=== PATIENT | male | born 1950 | race African-American/Black ===

== ENCOUNTER 2018-10-13 05:18 | Inpatient (IN) ==
[2018-10-13] MEDS ORDERED: HYDROmorphone 2 MG/1 ML VIAL IV PRN (06:11)
[2018-10-13] MEDS ORDERED: ONDANSETRON 4 MG/2 ML VIAL IV STA (06:11)
[2018-10-13 06:23] LABS: Basophils % 0.6 % (0.0-0.8); Eosinophils # 0.1 10*3/uL (0.0-0.87); Eosinophils % 1.4 % (0.00-10.9); Hemoglobin 13.6 GM/DL (14.0-18.0); Immature Granulocytes % 0.4 %; Immature Granulocytes Absolute 0.03 #; Lymphocytes # 1.1 10*3/uL (1.4-4.0); Lymphocytes % 16.2 % (21.2-54.2); Mean Corpuscular HGB Conc 32.4 GM/DL (32-36); Mean Corpuscular Hemoglobin 27 PG (27-34); Mean Corpuscular Volume 84.2 FL (87-102); Mean Platelet Volume 11.8 FL (9.6-12.0); Monocytes # 0.4 10*3/uL (0.11-0.8); Monocytes % 5.6 % (1.7-12.7); Neutrophils # 5.2 10*3/uL (1.4-7.4); Neutrophils % 75.8 % (38.7-73.9); Platelet Count 248 T/CUMM (130-400); Red Blood Count 4.99 MC/CUMM (3.8-5.5); Red Cell Distribution Width 14.6 % (9.3-17.3); White Blood Count 6.9 T/CUMM (4-12)
[2018-10-13 06:57] LABS: Lactic Acid 1.8 MMOL/L (0.4-2.0)
[2018-10-13 07:12] LABS: Alanine Aminotransferase 22 U/L (16-61); Albumin 3.4 G/DL (3.4-5.0); Alkaline Phosphatase 80 U/L (45-117); Aspartate Amino Transferase 15 U/L (0-37); Bilirubin,Total < 0.39 MG/DL (0.2-1.0); Blood Urea Nitrogen 17 MG/DL (7-18); Calcium 8.5 MG/DL (8.5-10.1); Glucose 100 MG/DL (74-106); Osmolality,Calculated 274.8 MOS/KG (273-304); Potassium 4.2 MMOL/L (3.5-5.1); Sodium 137 MMOL/L (136-145); Total Protein 7.9 G/DL (6.4-8.3)
[2018-10-13 08:41] LABS: Amorphous Crystals,Urine Occasional /HPF (Few); Apearance,Urine Slightly Hazy (Clear); Bacteria,Urine Occasional /HPF (Few); Bilirubin,Urine Negative (Negative); Blood, Urine Small mg/dL (Negative); Glucose,Urine (UA) Negative (Negative); Hyaline Casts,Urine 15 /LPF (0-3); Ketones,Urine Negative (Negative); Mucus,Urine Occasional /LPF (Occasional); Nitrite,Urine Negative (Negative); Protein,Urine Negative; RBC,Urine 4 /HPF (0-4); Squamous Epithelial Cell,Urine Occasional /HPF (0-10); Urine Color Yellow (Yellow); Urine Specific Gravity 1.014 (1.001-1.035); Urine Urobilinogen < 2.0 EU/DL (0.2-1.0); WBC,Urine 18 /HPF (0-6)
[2018-10-13] MEDS ORDERED: ZALEPLON 5 MG CAPSULE PO PRN (09:31)
[2018-10-13] MEDS ORDERED: BISACODYL 5 MG TABLET PO PRN (09:31)
[2018-10-13] MEDS ORDERED: ONDANSETRON 4 MG/2 ML VIAL IV PRN (09:31)
[2018-10-13] MEDS ORDERED: ALBUTEROL 2.5 MG/3 ML NEB RESP TX PRN (09:34)
[2018-10-13] MEDS ORDERED: SODIUM CHLORIDE 0.9% 1,000 ML IV STA (10:06)
[2018-10-13] MEDS: amLODIPine 5 MG TABLET PO SCH (13:10)
[2018-10-13] MEDS: METOPROLOL TARTRATE 50 MG TABLET PO SCH ×2 (13:10→21:17)
[2018-10-13] MEDS: OXYBUTYNIN XL 10 MG TABLET PO SCH (13:11)
[2018-10-13 17:09] LABS: Barbiturates Screen,Urine Negative (Negative); Benzodiazepines Screen,Urine Negative (Negative); Cannabinoid Screen,Urine Negative (Negative); Opiate Screen,Urine Positive (Negative); Phencyclidine Screen,Urine Negative (Negative)
[2018-10-13] MEDS: ENOXAPARIN 30 MG/0.3 ML SYRINGE SUBCUT SCH (21:17)
[2018-10-13] MEDS: MONTELUKAST 10 MG TABLET PO SCH (21:17)
[2018-10-14 05:17] LABS: Calcium 8.9 MG/DL (8.5-10.1); Osmolality,Calculated 280.5 MOS/KG (273-304); Potassium 4.7 MMOL/L (3.5-5.1)
[2018-10-14] MEDS: OXYBUTYNIN XL 10 MG TABLET PO SCH (09:33)
[2018-10-14] MEDS: amLODIPine 5 MG TABLET PO SCH (09:34)
[2018-10-14] MEDS: METOPROLOL TARTRATE 50 MG TABLET PO SCH ×2 (09:34→21:15)
[2018-10-14] MEDS: MONTELUKAST 10 MG TABLET PO SCH (21:16)
[2018-10-14] MEDS: ENOXAPARIN 30 MG/0.3 ML SYRINGE SUBCUT SCH (21:16)
[2018-10-15 05:36] LABS: Calcium 8.6 MG/DL (8.5-10.1); Osmolality,Calculated 276.7 MOS/KG (273-304); Potassium 4.4 MMOL/L (3.5-5.1)
[2018-10-15] MEDS: amLODIPine 5 MG TABLET PO SCH (08:43)
[2018-10-15] MEDS: SODIUM CHLORIDE 0.9% 1,000 ML IV SCH (08:44)
[2018-10-15] MEDS: OXYBUTYNIN XL 10 MG TABLET PO SCH (08:44)
[2018-10-15] MEDS: METOPROLOL TARTRATE 50 MG TABLET PO SCH ×2 (10:05→21:50)
[2018-10-15] MEDS ORDERED: hydrALAZINE 20 MG/1 ML VIAL IV PRN (11:57)
[2018-10-15] MEDS: hydrALAZINE 25 MG TABLET PO SCH ×2 (14:03→21:51)
[2018-10-15] MEDS ORDERED: cefTRIAXone 1,000 MG in SYRINGE 1 EACH IV SCH (16:00)
[2018-10-15] MEDS: MONTELUKAST 10 MG TABLET PO SCH (21:50)
[2018-10-15] MEDS: ENOXAPARIN 30 MG/0.3 ML SYRINGE SUBCUT SCH (21:51)
[2018-10-16] MEDS: SODIUM CHLORIDE 0.9% 1,000 ML IV SCH (06:35)
[2018-10-16] MEDS: amLODIPine 5 MG TABLET PO SCH (08:45)
[2018-10-16] MEDS: OXYBUTYNIN XL 10 MG TABLET PO SCH (08:45)
[2018-10-16] MEDS: hydrALAZINE 25 MG TABLET PO SCH (08:45)
[2018-10-16] MEDS: METOPROLOL TARTRATE 50 MG TABLET PO SCH (08:45)
[2018-10-16 12:27] VITALS: BP 157/78
== END 2018-10-16 13:18 | disposition home or self-care (01) | DRG 439 ==
LOC: EDUNIT# → EDBD → N.ED 05:18 → N.EDINP 09:31 → SUATTDRO 09:31 → N.4E 10:41
PROVIDERS: ADMIT Internal Medicine Cardiovascular Disease; ATTEND Internal Medicine

== ENCOUNTER 2020-10-11 11:57 | Inpatient (IN) ==
[2020-10-11] MEDS ORDERED: methylPREDNISolone SOD SUC 125 MG/2 ML VIAL IV STA (12:24)
[2020-10-11] MEDS ORDERED: ALBUTEROL NEB SOLN 5 MG/ML 20 ML/BOTTLE CONT NEB SCH (12:30)
[2020-10-11 12:31] LABS: Basophils % 0.2 % (0.0-0.8); Eosinophils # 0.1 10*3/uL (0.0-0.87); Hemoglobin 13.6 GM/DL (14.0-18.0); Immature Granulocytes % 0.3 %; Immature Granulocytes Absolute 0.03 #; Lymphocytes # 0.7 10*3/uL (1.4-4.0); Lymphocytes % 7.1 % (21.2-54.2); Mean Corpuscular HGB Conc 33.2 GM/DL (32-36); Mean Corpuscular Volume 80.1 FL (87-102); Mean Platelet Volume 11.9 FL (9.6-12.0); Monocytes % 4.6 % (1.7-12.7); Neutrophils % 86.8 % (38.7-73.9); Platelet Count 188 T/CUMM (130-400); Red Blood Count 5.12 MC/CUMM (3.8-5.5); Red Cell Distribution Width 14.7 % (9.3-17.3); White Blood Count 9.8 T/CUMM (4-12)
[2020-10-11 12:59] LABS: Albumin 3.1 G/DL (3.4-5.0); Bilirubin,Total 0.8 MG/DL (0.2-1.0); Calcium 9.3 MG/DL (8.5-10.1); Potassium 4.1 MMOL/L (3.5-5.1); Total Protein 8.2 G/DL (6.4-8.3)
[2020-10-11 13:06] LABS: ABG Base Excess -0.1 MMOL/L (-2.5-2.5); ABG HCO3 24.3 MMOL/L (20-26); ABG Oxygen Saturation 96.9 % (95-100); ABG PCO2 32.5 MM HG (35-48); ABG PH 7.458 (7.35-7.45); ABG PO2 85.5 MM HG (80-95); ABG TCO2 20.2 MMOL/L (23-27)
[2020-10-11] MEDS ORDERED: DEXAMETHASONE 4 MG/1 ML VIAL IV STA (13:07)
[2020-10-11] MEDS ORDERED: FUROSEMIDE 40 MG/4 ML VIAL IV STA (14:58)
[2020-10-11] MEDS ORDERED: cefTRIAXone 1,000 MG in SODIUM CHLORIDE 0.9% 100 ML IV STA (14:58)
[2020-10-11 16:09] LABS: Ferritin 991.4 ng/ml (26-388)
[2020-10-11] MEDS ORDERED: DEXTROSE 50% 25 GM/50 ML VIAL IV PRN ×2 (16:21→17:41)
[2020-10-11] MEDS ORDERED: GLUCAGON 1 MG VIAL IM PRN ×2 (16:21→17:41)
[2020-10-11] MEDS ORDERED: hydrALAZINE 20 MG/1 ML VIAL IV STA (16:25)
[2020-10-11] MEDS ORDERED: hydrALAZINE 20 MG/1 ML VIAL ONE (16:26)
[2020-10-11] MEDS: hydrALAZINE 25 MG TABLET PO SCH (21:25)
[2020-10-11] MEDS: INSULIN LISPRO 100 UNIT/ML SUBCUT SCH (21:38)
[2020-10-12] MEDS: ATORVASTATIN 10 MG TABLET PO SCH ×2 (00:37→21:29)
[2020-10-12] MEDS: hydrALAZINE 20 MG/1 ML VIAL IV PRN ×3 (00:39→05:44)
[2020-10-12 03:37] LABS: Bacteria,Urine Occasional /HPF (Few); Bilirubin,Urine Negative (Negative); Blood, Urine Negative (Negative); Glucose,Urine (UA) Negative (Negative); Hyaline Casts,Urine 12 /LPF (0-3); Ketones,Urine Negative (Negative); Mucus,Urine Occasional /LPF (Occasional); Nitrite,Urine Negative (Negative); Protein,Urine 30 MG/DL; RBC,Urine 1 /HPF (0-4); Urine Appearance Slightly Hazy (Clear); Urine Color Yellow (Yellow); Urine Specific Gravity 1.011 (1.001-1.035); Urine Urobilinogen < 2.0 EU/DL (0.2-1.0); WBC,Urine <1 /HPF (0-6)
[2020-10-12 05:47] LABS: Ferritin 1835.6 ng/ml (26-388)
[2020-10-12 06:05] LABS: Basophils % 0.1 % (0.0-0.8); Hematocrit 38.9 VOL% (42.0-52.0); Immature Granulocytes % 0.4 %; Immature Granulocytes Absolute 0.04 #; Lymphocytes # 0.4 10*3/uL (1.4-4.0); Lymphocytes % 4.4 % (21.2-54.2); Mean Corpuscular HGB Conc 33.7 GM/DL (32-36); Mean Corpuscular Volume 79.4 FL (87-102); Mean Platelet Volume 11.3 FL (9.6-12.0); Monocytes % 2.8 % (1.7-12.7); Neutrophils % 92.3 % (38.7-73.9); Platelet Count 169 T/CUMM (130-400); Red Cell Distribution Width 14.6 % (9.3-17.3); White Blood Count 9.2 T/CUMM (4-12)
[2020-10-12 06:06] LABS: Albumin 2.9 G/DL (3.4-5.0); Bilirubin,Total 0.7 MG/DL (0.2-1.0); Calcium 9.2 MG/DL (8.5-10.1); Osmolality,Calculated 297.7 MOS/KG (273-304); Potassium 4.4 MMOL/L (3.5-5.1); Risk Ratio 2.23; Thyroid Stimulating Hormone 0.576 uIU/ml (0.358-3.74); Total Protein 7.3 G/DL (6.4-8.3); VLDL CHOLESTEROL 12.4 MG/DL
[2020-10-12 06:07] LABS: Hemoglobin 13.1 GM/DL (14.0-18.0)
[2020-10-12 06:31] LABS: Band Neutrophils 1 % (0-10); Hypochromasia 1+; Lymphocytes 5 % (20-55); Microcytosis 1+; Platelet Estimate Adequate; Segmented Neutrophils 94 % (50-85); Total Cells Counted 100
[2020-10-12] MEDS: INSULIN LISPRO 100 UNIT/ML SUBCUT SCH ×4 (07:43→21:34)
[2020-10-12] MEDS: hydrALAZINE 25 MG TABLET PO SCH ×2 (09:16→21:29)
[2020-10-12] MEDS: FUROSEMIDE 40 MG/4 ML VIAL IV SCH (09:17)
[2020-10-12] MEDS: DEXAMETHASONE 4 MG/1 ML VIAL IV SCH (09:17)
[2020-10-12] MEDS ORDERED: HEPARIN 5,000 UNIT/1 ML VIAL SUBCUT SCH (12:00)
[2020-10-12] MEDS: HEPARIN 5,000 UNIT/1 ML VIAL SUBCUT SCH ×2 (12:52→21:29)
[2020-10-12] MEDS: ASCORBIC ACID 500 MG TABLET PO SCH ×2 (12:53→21:29)
[2020-10-12] MEDS: ZINC GLUCONATE 50 MG TABLET PO SCH (12:53)
[2020-10-12] MEDS: ALBUTEROL INHALER 18 GM INH SCH ×2 (12:53→18:03)
[2020-10-12] MEDS: METOPROLOL TARTRATE 50 MG TABLET PO SCH (21:29)
[2020-10-12] MEDS: cefTRIAXone 1,000 MG in SYRINGE 1 EACH IV SCH (21:32)
[2020-10-12] MEDS: AZITHROMYCIN INJ 500 MG in SODIUM CHLORIDE 0.9% 250 ML IV SCH (21:50)
[2020-10-13] MEDS: ALBUTEROL INHALER 18 GM INH SCH ×4 (00:07→22:02)
[2020-10-13] MEDS: HEPARIN 5,000 UNIT/1 ML VIAL SUBCUT SCH ×3 (04:38→22:31)
[2020-10-13 05:49] LABS: Basophils % 0.1 % (0.0-0.8); Hematocrit 37.8 VOL% (42.0-52.0); Hemoglobin 12.7 GM/DL (14.0-18.0); Immature Granulocytes % 0.8 %; Immature Granulocytes Absolute 0.08 #; Lymphocytes # 0.5 10*3/uL (1.4-4.0); Lymphocytes % 4.8 % (21.2-54.2); Mean Corpuscular HGB Conc 33.6 GM/DL (32-36); Mean Corpuscular Volume 80.6 FL (87-102); Mean Platelet Volume 11.7 FL (9.6-12.0); Monocytes % 3.2 % (1.7-12.7); Neutrophils % 91.1 % (38.7-73.9); Platelet Count 203 T/CUMM (130-400); Red Blood Count 4.69 MC/CUMM (3.8-5.5); Red Cell Distribution Width 14.9 % (9.3-17.3); White Blood Count 10.1 T/CUMM (4-12)
[2020-10-13 06:16] LABS: Hypochromasia 1+; Lymphocytes 4 % (20-55); Microcytosis 1+; Platelet Estimate Adequate; Segmented Neutrophils 92 % (50-85); Total Cells Counted 100
[2020-10-13 06:17] LABS: Albumin 2.7 G/DL (3.4-5.0); Bilirubin,Total 0.4 MG/DL (0.2-1.0); Osmolality,Calculated 297.7 MOS/KG (273-304); Potassium 4.2 MMOL/L (3.5-5.1); Total Protein 7.2 G/DL (6.4-8.3)
[2020-10-13 06:32] LABS: Ferritin 2346.3 ng/ml (26-388)
[2020-10-13] MEDS: INSULIN LISPRO 100 UNIT/ML SUBCUT SCH ×4 (07:58→22:02)
[2020-10-13] MEDS: DEXAMETHASONE 4 MG/1 ML VIAL IV SCH (08:48)
[2020-10-13] MEDS: MULTIVITAMIN (CENTRUM) TABLET PO SCH (08:49)
[2020-10-13] MEDS: FUROSEMIDE 40 MG/4 ML VIAL IV SCH (08:49)
[2020-10-13] MEDS: ZINC GLUCONATE 50 MG TABLET PO SCH (08:49)
[2020-10-13] MEDS: hydrALAZINE 25 MG TABLET PO SCH ×3 (08:49→22:29)
[2020-10-13] MEDS: THIAMINE 100 MG TABLET PO SCH (08:49)
[2020-10-13] MEDS: FOLIC ACID 1 MG TABLET PO SCH (08:49)
[2020-10-13] MEDS: ASCORBIC ACID 500 MG TABLET PO SCH ×2 (08:49→22:29)
[2020-10-13] MEDS: METOPROLOL TARTRATE 50 MG TABLET PO SCH ×2 (08:50→22:29)
[2020-10-13] MEDS ORDERED: methylPREDNISolone SOD SUC 125 MG/2 ML VIAL IV ONE (11:00)
[2020-10-13] MEDS: CETIRIZINE 10 MG TABLET PO SCH (12:06)
[2020-10-13] MEDS: ATORVASTATIN 10 MG TABLET PO SCH (22:29)
[2020-10-13] MEDS: AZITHROMYCIN INJ 500 MG in SODIUM CHLORIDE 0.9% 250 ML IV SCH (22:30)
[2020-10-13] MEDS: cefTRIAXone 1,000 MG in SYRINGE 1 EACH IV SCH (22:30)
[2020-10-14] MEDS: ALBUTEROL INHALER 18 GM INH SCH ×2 (00:37→09:03)
[2020-10-14] MEDS: HEPARIN 5,000 UNIT/1 ML VIAL SUBCUT SCH (05:06)
[2020-10-14 05:10] LABS: Hematocrit 35.8 VOL% (42.0-52.0); Hemoglobin 11.9 GM/DL (14.0-18.0); Immature Granulocytes % 0.4 %; Immature Granulocytes Absolute 0.04 #; Lymphocytes # 0.5 10*3/uL (1.4-4.0); Lymphocytes % 5.4 % (21.2-54.2); Mean Corpuscular HGB Conc 33.2 GM/DL (32-36); Mean Corpuscular Volume 79.7 FL (87-102); Mean Platelet Volume 11.3 FL (9.6-12.0); Monocytes % 3.1 % (1.7-12.7); Neutrophils % 91.1 % (38.7-73.9); Platelet Count 209 T/CUMM (130-400); Red Blood Count 4.49 MC/CUMM (3.8-5.5); Red Cell Distribution Width 14.6 % (9.3-17.3)
[2020-10-14 05:31] LABS: Ferritin 1765.2 ng/ml (26-388)
[2020-10-14 05:32] LABS: Albumin 2.6 G/DL (3.4-5.0); Bilirubin,Total 0.4 MG/DL (0.2-1.0); Calcium 8.9 MG/DL (8.5-10.1); Osmolality,Calculated 294.3 MOS/KG (273-304); Total Protein 7.1 G/DL (6.4-8.3)
[2020-10-14 05:39] LABS: Hypochromasia 1+; Lymphocytes 5 % (20-55); Microcytosis 1+; Ovalocytes Slight; Platelet Estimate Adequate; Segmented Neutrophils 91 % (50-85); Total Cells Counted 100
[2020-10-14] MEDS: INSULIN LISPRO 100 UNIT/ML SUBCUT SCH (07:37)
[2020-10-14] MEDS: METOPROLOL TARTRATE 50 MG TABLET PO SCH (09:06)
[2020-10-14] MEDS: THIAMINE 100 MG TABLET PO SCH (09:06)
[2020-10-14] MEDS: DEXAMETHASONE 4 MG/1 ML VIAL IV SCH (09:06)
[2020-10-14] MEDS: CETIRIZINE 10 MG TABLET PO SCH (09:06)
[2020-10-14] MEDS: FOLIC ACID 1 MG TABLET PO SCH (09:06)
[2020-10-14] MEDS: hydrALAZINE 25 MG TABLET PO SCH (09:06)
[2020-10-14] MEDS: FUROSEMIDE 40 MG/4 ML VIAL IV SCH (09:07)
[2020-10-14] MEDS: ZINC GLUCONATE 50 MG TABLET PO SCH (09:07)
[2020-10-14] MEDS: MULTIVITAMIN (CENTRUM) TABLET PO SCH (09:07)
[2020-10-14] MEDS: ASCORBIC ACID 500 MG TABLET PO SCH (09:08)
[2020-10-14 11:29] VITALS: BP 152/71
[2020-10-14 23:31] LABS: Specimen Source THROAT SWAB
== END 2020-10-14 11:33 | disposition home health service (06) | DRG 291 ==
LOC: N.ED 11:57 → N.EDINP 15:55 → SUATTDRO 15:55 → N.EDINP 23:00 → N.2E 23:54
PROVIDERS: ADMIT Internal Medicine; ATTEND Family Medicine

== ENCOUNTER 2020-12-24 09:54 | Observation (INO) ==
[2020-12-24 10:22] LABS: Basophils % 0.5 % (0.0-0.8); Eosinophils # 0.1 10*3/uL (0.0-0.87); Eosinophils % 1.9 % (0.00-10.9); Hematocrit 42.3 VOL% (42.0-52.0); Hemoglobin 13.7 GM/DL (14.0-18.0); Immature Granulocytes % 0.2 %; Immature Granulocytes Absolute 0.01 #; Lymphocytes # 1.1 10*3/uL (1.4-4.0); Lymphocytes % 18.4 % (21.2-54.2); Mean Corpuscular HGB Conc 32.4 GM/DL (32-36); Mean Corpuscular Volume 78.8 FL (87-102); Mean Platelet Volume 9.8 FL (9.6-12.0); Monocytes % 7.3 % (1.7-12.7); Neutrophils % 71.7 % (38.7-73.9); Platelet Count 224 T/CUMM (130-400); Red Blood Count 5.37 MC/CUMM (3.8-5.5); Red Cell Distribution Width 16.5 % (9.3-17.3); White Blood Count 5.9 T/CUMM (4-12)
[2020-12-24] MEDS ORDERED: methylPREDNISolone SOD SUC 125 MG/2 ML VIAL IV STA (10:23)
[2020-12-24] MEDS ORDERED: ALBUTEROL 2.5 MG/3 ML NEB RESP TX STA (10:25)
[2020-12-24] MEDS ORDERED: hydrALAZINE 20 MG/1 ML VIAL IV STA (10:32)
[2020-12-24] MEDS ORDERED: FUROSEMIDE 40 MG/4 ML VIAL IV STA (10:39)
[2020-12-24 10:52] LABS: INR 1.2
[2020-12-24 12:17] LABS: Albumin 3.2 G/DL (3.4-5.0); Bilirubin,Total 0.6 MG/DL (0.2-1.0); Calcium 9.3 MG/DL (8.5-10.1); Osmolality,Calculated 273.8 MOS/KG (273-304); Potassium 4.1 MMOL/L (3.5-5.1); Total Protein 8.2 G/DL (5.0-7.5)
[2020-12-24] MEDS ORDERED: ONDANSETRON 4 MG/2 ML VIAL IV PRN (13:20)
[2020-12-24] MEDS ORDERED: hydrALAZINE 20 MG/1 ML VIAL IV PRN (13:20)
[2020-12-24] MEDS ORDERED: CALCIUM CARBONATE CHEW 500 MG TABLET PO PRN (13:20)
[2020-12-24] MEDS ORDERED: LACTULOSE 20 GM/30 ML UDCUP PO PRN (13:20)
[2020-12-24] MEDS ORDERED: GLUCAGON 1 MG VIAL IM PRN ×2 (13:20)
[2020-12-24] MEDS ORDERED: DEXTROSE 50% 25 GM/50 ML VIAL IV PRN ×2 (13:20)
[2020-12-24] MEDS ORDERED: ACETAMINOPHEN 325 MG TABLET PO PRN (13:20)
[2020-12-24] MEDS ORDERED: METOPROLOL TARTRATE 5 MG/5 ML VIAL IV STA (13:22)
[2020-12-24] MEDS ORDERED: MAGNESIUM SULF RIDER 2 GM in PREMIX 1 EACH IV PRN (13:25)
[2020-12-24] MEDS ORDERED: MAGNESIUM SULF RIDER 4 GM in PREMIX 1 EACH IV PRN (13:25)
[2020-12-24] MEDS: ENOXAPARIN 30 MG/0.3 ML SYRINGE SUBCUT SCH (14:04)
[2020-12-24] MEDS: ISOSORBIDE MONONITRATE 60 MG TABLET PO SCH (17:34)
[2020-12-24] MEDS: FUROSEMIDE 40 MG/4 ML VIAL IV SCH (17:39)
[2020-12-24] MEDS: ALBUTEROL/IPRATROPIUM 3 ML NEB RESP TX SCH (20:05)
[2020-12-24] MEDS: DOCUSATE SODIUM 100 MG CAPSULE PO SCH (20:53)
[2020-12-24] MEDS: hydrALAZINE 25 MG TABLET PO SCH (20:54)
[2020-12-24] MEDS: ATORVASTATIN 10 MG TABLET PO SCH (20:54)
[2020-12-24] MEDS: METOPROLOL TARTRATE 50 MG TABLET PO SCH (20:54)
[2020-12-25] MEDS: ALBUTEROL/IPRATROPIUM 3 ML NEB RESP TX SCH ×4 (01:15→19:28)
[2020-12-25 06:03] LABS: Basophils % 0.2 % (0.0-0.8); Hematocrit 40.6 VOL% (42.0-52.0); Immature Granulocytes % 0.3 %; Immature Granulocytes Absolute 0.02 #; Lymphocytes # 0.6 10*3/uL (1.4-4.0); Lymphocytes % 9.9 % (21.2-54.2); Mean Corpuscular Volume 79.3 FL (87-102); Mean Platelet Volume 11.2 FL (9.6-12.0); Monocytes % 3.6 % (1.7-12.7); Platelet Count 259 T/CUMM (130-400); Red Blood Count 5.12 MC/CUMM (3.8-5.5); Red Cell Distribution Width 16.2 % (9.3-17.3); White Blood Count 5.8 T/CUMM (4-12)
[2020-12-25 06:26] LABS: Calcium 9.3 MG/DL (8.5-10.1); Osmolality,Calculated 274.2 MOS/KG (273-304); Potassium 4.7 MMOL/L (3.5-5.1); Risk Ratio 2.39; VLDL CHOLESTEROL 10.4 MG/DL
[2020-12-25] MEDS ORDERED: POLYETHYLENE GLYCOL POWDER 17 GM PACK PO SCH (09:00)
[2020-12-25] MEDS: METOPROLOL TARTRATE 50 MG TABLET PO SCH ×2 (09:05→20:56)
[2020-12-25] MEDS: ISOSORBIDE MONONITRATE 60 MG TABLET PO SCH (09:05)
[2020-12-25] MEDS: DOCUSATE SODIUM 100 MG CAPSULE PO SCH ×2 (09:05→20:56)
[2020-12-25] MEDS: PANTOPRAZOLE 40 MG TABLET PO SCH (09:05)
[2020-12-25] MEDS: hydrALAZINE 25 MG TABLET PO SCH (09:05)
[2020-12-25] MEDS: FUROSEMIDE 40 MG/4 ML VIAL IV SCH (09:13)
[2020-12-25] MEDS: ENOXAPARIN 30 MG/0.3 ML SYRINGE SUBCUT SCH (12:38)
[2020-12-25] MEDS: POLYETHYLENE GLYCOL POWDER 17 GM PACK PO SCH (20:56)
[2020-12-25] MEDS: ATORVASTATIN 10 MG TABLET PO SCH (20:56)
[2020-12-26] MEDS: ALBUTEROL/IPRATROPIUM 3 ML NEB RESP TX SCH ×2 (01:08→07:10)
[2020-12-26 05:46] LABS: Basophils % 0.3 % (0.0-0.8); Eosinophils # 0.1 10*3/uL (0.0-0.87); Eosinophils % 0.8 % (0.00-10.9); Hematocrit 37.9 VOL% (42.0-52.0); Hemoglobin 12.2 GM/DL (14.0-18.0); Immature Granulocytes % 0.5 %; Immature Granulocytes Absolute 0.03 #; Lymphocytes # 1.3 10*3/uL (1.4-4.0); Lymphocytes % 20.2 % (21.2-54.2); Mean Corpuscular HGB Conc 32.2 GM/DL (32-36); Mean Corpuscular Volume 78.8 FL (87-102); Monocytes % 7.2 % (1.7-12.7); Platelet Count 213 T/CUMM (130-400); Red Blood Count 4.81 MC/CUMM (3.8-5.5); White Blood Count 6.3 T/CUMM (4-12)
[2020-12-26 05:59] LABS: Potassium 4.2 MMOL/L (3.5-5.1)
[2020-12-26 06:03] LABS: Calcium 8.9 MG/DL (8.5-10.1)
[2020-12-26] MEDS ORDERED: FUROSEMIDE 40 MG/4 ML VIAL IV SCH (09:00)
[2020-12-26] MEDS ORDERED: FUROSEMIDE 20 MG TABLET PO SCH (09:00)
[2020-12-26] MEDS: PANTOPRAZOLE 40 MG TABLET PO SCH (09:18)
[2020-12-26] MEDS: POLYETHYLENE GLYCOL POWDER 17 GM PACK PO SCH (09:18)
[2020-12-26] MEDS: DOCUSATE SODIUM 100 MG CAPSULE PO SCH (09:18)
[2020-12-26] MEDS: METOPROLOL TARTRATE 50 MG TABLET PO SCH (09:18)
[2020-12-26] MEDS: ISOSORBIDE MONONITRATE 60 MG TABLET PO SCH (09:19)
[2020-12-26 11:31] VITALS: BP 140/80
== END 2020-12-26 12:51 | disposition home or self-care (01) ==
LOC: N.EDINP 09:54 → N.ED 09:54 → N.EDINP 16:27 → N.3E 16:38
PROVIDERS: ADMIT Internal Medicine; ATTEND Internal Medicine

== ENCOUNTER 2021-02-05 23:39 | Inpatient (IN) ==
[2021-02-05] MEDS ORDERED: FUROSEMIDE 40 MG/4 ML VIAL IV STA (23:45)
[2021-02-05] MEDS ORDERED: FUROSEMIDE 100 MG/10 ML VIAL ONE (23:45)
[2021-02-05] MEDS ORDERED: FUROSEMIDE 100 MG/10 ML VIAL IV STA (23:46)
[2021-02-05] MEDS ORDERED: NITROGLYCERIN DRIP 50 MG/250 ML BOTTLE IV PRN (23:47)
[2021-02-05] MEDS ORDERED: NITROGLYCERIN DRIP 50 MG/250 ML BOTTLE IV ONE (23:52)
[2021-02-06 00:17] LABS: Basophils # 0.1 10*3/uL (0.0-0.2); Basophils % 0.3 % (0.0-0.8); Eosinophils # 0.1 10*3/uL (0.0-0.87); Eosinophils % 0.6 % (0.00-10.9); Hematocrit 43.1 VOL% (42.0-52.0); Hemoglobin 13.6 GM/DL (14.0-18.0); Immature Granulocytes % 0.7 %; Lymphocytes # 0.9 10*3/uL (1.4-4.0); Lymphocytes % 5.9 % (21.2-54.2); Mean Corpuscular HGB Conc 31.6 GM/DL (32-36); Mean Corpuscular Volume 78.1 FL (87-102); Mean Platelet Volume 10.8 FL (9.6-12.0); Monocytes % 5.2 % (1.7-12.7); Neutrophils % 87.3 % (38.7-73.9); Platelet Count 260 T/CUMM (130-400); Red Blood Count 5.52 MC/CUMM (3.8-5.5); Red Cell Distribution Width 17.5 % (9.3-17.3); White Blood Count 15.4 T/CUMM (4-12)
[2021-02-06] MEDS ORDERED: PIPERACILLIN/TAZOBACTAM 3,375 MG VIAL IV ONE (00:20)
[2021-02-06] MEDS ORDERED: SODIUM CHLORIDE 0.9% 100 ML IV ONE (00:22)
[2021-02-06 00:33] LABS: ABG Base Excess -4.5 MMOL/L (-2.5-2.5); ABG HCO3 20.5 MMOL/L (20-26); ABG Oxygen Saturation 88.9 % (95-100); ABG PCO2 35.9 MM HG (35-48); ABG PO2 61.9 MM HG (80-95); ABG TCO2 17.8 MMOL/L (23-27)
[2021-02-06 00:39] LABS: Albumin 3.6 G/DL (3.4-5.0); Bilirubin,Total 0.5 MG/DL (0.2-1.0); Calcium 8.7 MG/DL (8.5-10.1); Osmolality,Calculated 286.4 MOS/KG (273-304); Potassium 4.3 MMOL/L (3.5-5.1); Total Protein 7.8 G/DL (6.4-8.2)
[2021-02-06] MEDS ORDERED: FUROSEMIDE 40 MG/4 ML VIAL IV ONE (02:43)
[2021-02-06] MEDS ORDERED: ALBUTEROL/IPRATROPIUM 3 ML NEB RESP TX PRN (02:46)
[2021-02-06] MEDS ORDERED: MAGNESIUM SULF RIDER 2 GM/50 ML PREMIX IV PRN (02:49)
[2021-02-06] MEDS ORDERED: MAGNESIUM SULF RIDER 4 GM/100 ML PREMIX IV PRN (02:49)
[2021-02-06] MEDS ORDERED: POTASSIUM CHLORIDE RIDER 10 MEQ in PREMIX 1 EACH IV PRN (02:49)
[2021-02-06 03:11] LABS: Basophils % 0.3 % (0.0-0.8); Eosinophils % 0.2 % (0.00-10.9); Hematocrit 37.1 VOL% (42.0-52.0); Hemoglobin 12.2 GM/DL (14.0-18.0); Immature Granulocytes % 0.3 %; Immature Granulocytes Absolute 0.03 #; Lymphocytes # 0.4 10*3/uL (1.4-4.0); Lymphocytes % 3.4 % (21.2-54.2); Mean Corpuscular HGB Conc 32.9 GM/DL (32-36); Mean Corpuscular Volume 76.5 FL (87-102); Mean Platelet Volume 9.9 FL (9.6-12.0); Monocytes % 4.9 % (1.7-12.7); Neutrophils % 90.9 % (38.7-73.9); Platelet Count 203 T/CUMM (130-400); Red Blood Count 4.85 MC/CUMM (3.8-5.5); Red Cell Distribution Width 16.6 % (9.3-17.3); White Blood Count 11.6 T/CUMM (4-12)
[2021-02-06] MEDS: ENOXAPARIN 30 MG/0.3 ML SYRINGE SUBCUT SCH (03:19)
[2021-02-06] MEDS: PANTOPRAZOLE 40 MG VIAL IV SCH (03:19)
[2021-02-06 04:00] LABS: Calcium 8.6 MG/DL (8.5-10.1); Potassium 4.1 MMOL/L (3.5-5.1); Risk Ratio 2.47; Thyroid Stimulating Hormone 1.06 uIU/ml (0.358-3.74); VLDL CHOLESTEROL 13.6 MG/DL
[2021-02-06 05:01] LABS: Barbiturates Screen,Urine Negative (Negative); Benzodiazepines Screen,Urine Negative (Negative); Cannabinoid Screen,Urine Negative (Negative); Opiate Screen,Urine Negative (Negative); Phencyclidine Screen,Urine Negative (Negative)
[2021-02-06 06:37] LABS: Eosinophils 1 % (0-10); Lymphocytes 6 % (20-55); Platelet Estimate Normal; Segmented Neutrophils 92 % (50-85); Total Cells Counted 100
[2021-02-06] MEDS: FUROSEMIDE 40 MG/4 ML VIAL IV SCH ×2 (09:48→15:53)
[2021-02-06] MEDS: SPIRONOLACTONE 25 MG TABLET PO SCH (09:48)
[2021-02-06] MEDS: hydrALAZINE 25 MG TABLET PO SCH (09:49)
[2021-02-06] MEDS: ASPIRIN CHEW 81 MG TABLET PO SCH (09:49)
[2021-02-06] MEDS: METOPROLOL TARTRATE 50 MG TABLET PO SCH ×2 (09:49→20:23)
[2021-02-06] MEDS: ISOSORBIDE MONONITRATE 60 MG TABLET PO SCH (09:49)
[2021-02-06] MEDS: amLODIPine 10 MG TABLET PO SCH (12:29)
[2021-02-06] MEDS: ATORVASTATIN 10 MG TABLET PO SCH (20:23)
[2021-02-07] MEDS ORDERED: LORazepam 2 MG/1 ML VIAL IV ONE (03:18)
[2021-02-07] MEDS ORDERED: LORazepam 2 MG/1 ML VIAL ONE (03:20)
[2021-02-07 03:45] LABS: ABG Base Excess 2.8 MMOL/L (-2.5-2.5); ABG HCO3 26.8 MMOL/L (20-26); ABG Oxygen Saturation 93.4 % (95-100); ABG PH 7.424 (7.35-7.45); ABG PO2 68.8 MM HG (80-95); ABG TCO2 24.1 MMOL/L (23-27)
[2021-02-07] MEDS: ENOXAPARIN 30 MG/0.3 ML SYRINGE SUBCUT SCH (03:45)
[2021-02-07] MEDS: PANTOPRAZOLE 40 MG VIAL IV SCH (03:45)
[2021-02-07 05:44] LABS: Bilirubin,Direct 0.22 MG/DL (0.0-0.20); Bilirubin,Indirect 0.7 MG/DL (0.0-1.0); Bilirubin,Total 0.9 MG/DL (0.2-1.0); Calcium 8.7 MG/DL (8.5-10.1); Osmolality,Calculated 281.5 MOS/KG (273-304); Potassium 3.8 MMOL/L (3.5-5.1)
[2021-02-07] MEDS ORDERED: POTASSIUM CHLORIDE 20 MEQ TABLET PO PRN (08:09)
[2021-02-07] MEDS: ASPIRIN CHEW 81 MG TABLET PO SCH (08:21)
[2021-02-07] MEDS: DOCUSATE SODIUM 100 MG CAPSULE PO SCH (08:21)
[2021-02-07] MEDS: FUROSEMIDE 40 MG/4 ML VIAL IV SCH ×2 (08:21→18:28)
[2021-02-07] MEDS: hydrALAZINE 25 MG TABLET PO SCH ×3 (08:21→22:32)
[2021-02-07] MEDS: PANTOPRAZOLE 40 MG TABLET PO SCH (08:22)
[2021-02-07] MEDS: METOPROLOL TARTRATE 50 MG TABLET PO SCH ×2 (08:22→22:32)
[2021-02-07] MEDS: SPIRONOLACTONE 25 MG TABLET PO SCH (08:22)
[2021-02-07] MEDS: amLODIPine 10 MG TABLET PO SCH (08:22)
[2021-02-07] MEDS: ISOSORBIDE MONONITRATE 60 MG TABLET PO SCH (08:22)
[2021-02-07] MEDS: ATORVASTATIN 10 MG TABLET PO SCH (22:32)
[2021-02-08] MEDS: ENOXAPARIN 30 MG/0.3 ML SYRINGE SUBCUT SCH (03:36)
[2021-02-08 05:15] LABS: Basophils % 0.8 % (0.0-0.8); Eosinophils # 0.3 10*3/uL (0.0-0.87); Eosinophils % 5.7 % (0.00-10.9); Hematocrit 41.3 VOL% (42.0-52.0); Hemoglobin 13.5 GM/DL (14.0-18.0); Immature Granulocytes % 0.2 %; Immature Granulocytes Absolute 0.01 #; Lymphocytes # 1.1 10*3/uL (1.4-4.0); Lymphocytes % 20.4 % (21.2-54.2); Mean Corpuscular HGB Conc 32.7 GM/DL (32-36); Mean Corpuscular Volume 75.5 FL (87-102); Monocytes % 9.1 % (1.7-12.7); Neutrophils % 63.8 % (38.7-73.9); Platelet Count 236 T/CUMM (130-400); Red Blood Count 5.47 MC/CUMM (3.8-5.5); Red Cell Distribution Width 16.8 % (9.3-17.3); White Blood Count 5.3 T/CUMM (4-12)
[2021-02-08 05:39] LABS: Calcium 8.9 MG/DL (8.5-10.1); Osmolality,Calculated 280.7 MOS/KG (273-304)
[2021-02-08 07:47] VITALS: BP 147/88
[2021-02-08] MEDS: FUROSEMIDE 40 MG/4 ML VIAL IV SCH (08:15)
[2021-02-08] MEDS: hydrALAZINE 25 MG TABLET PO SCH (08:15)
[2021-02-08] MEDS: ASPIRIN CHEW 81 MG TABLET PO SCH (08:15)
[2021-02-08] MEDS: PANTOPRAZOLE 40 MG TABLET PO SCH (08:15)
[2021-02-08] MEDS: ISOSORBIDE MONONITRATE 60 MG TABLET PO SCH (08:15)
[2021-02-08] MEDS: SPIRONOLACTONE 25 MG TABLET PO SCH (08:16)
[2021-02-08] MEDS: METOPROLOL TARTRATE 50 MG TABLET PO SCH (08:16)
[2021-02-08] MEDS: DOCUSATE SODIUM 100 MG CAPSULE PO SCH (08:16)
[2021-02-08] MEDS: amLODIPine 10 MG TABLET PO SCH (08:16)
[2021-02-08] MEDS ORDERED: ENOXAPARIN 40 MG/0.4 ML SYRINGE SUBCUT SCH (21:00)
== END 2021-02-08 10:34 | disposition home health service (06) | DRG 291 ==
LOC: EDUNIT# → EDBD → N.ED 23:39 → N.EDINP 02-06 01:28 → SUATTDRO 02-06 01:28 → N.CC 02-06 01:50 → N.5E 02-07 19:55
PROVIDERS: ADMIT Internal Medicine; ATTEND Internal Medicine Geriatric Medicine

== ENCOUNTER 2021-04-20 12:54 | Inpatient (IN) ==
[2021-04-20 13:52] LABS: Basophils % 0.4 % (0.0-0.8); Eosinophils # 0.1 10*3/uL (0.0-0.87); Eosinophils % 1.8 % (0.00-10.9); Hematocrit 40.6 VOL% (42.0-52.0); Hemoglobin 12.8 GM/DL (14.0-18.0); Immature Granulocytes % 0.4 %; Immature Granulocytes Absolute 0.02 #; Lymphocytes # 0.8 10*3/uL (1.4-4.0); Lymphocytes % 16.8 % (21.2-54.2); Mean Corpuscular HGB Conc 31.5 GM/DL (32-36); Mean Corpuscular Volume 80.6 FL (87-102); Mean Platelet Volume 10.9 FL (9.6-12.0); Monocytes % 7.4 % (1.7-12.7); Neutrophils % 73.2 % (38.7-73.9); Platelet Count 245 T/CUMM (130-400); Red Blood Count 5.04 MC/CUMM (3.8-5.5); Red Cell Distribution Width 18.7 % (9.3-17.3); White Blood Count 4.6 T/CUMM (4-12)
[2021-04-20 14:28] LABS: Albumin 3.3 G/DL (3.4-5.0); Bilirubin,Total 0.9 MG/DL (0.20-1.00); Calcium 9.3 MG/DL (8.5-10.1); Osmolality,Calculated 288.8 MOS/KG (273-304); Potassium 4.4 MMOL/L (3.5-5.1); Total Protein 7.3 G/DL (6.4-8.2)
[2021-04-20] MEDS ORDERED: ALBUTEROL 2.5 MG/3 ML NEB RESP TX STA (14:30)
[2021-04-20] MEDS ORDERED: FUROSEMIDE 40 MG/4 ML VIAL IV STA (15:09)
[2021-04-20] MEDS ORDERED: ONDANSETRON 4 MG/2 ML VIAL IV PRN (15:21)
[2021-04-20] MEDS ORDERED: ALBUTEROL 2.5 MG/3 ML NEB RESP TX PRN (15:21)
[2021-04-20] MEDS: niCARdipine INJ 25 MG in SODIUM CHLORIDE 0.9% 240 ML IV PRN ×2 (15:39→20:40)
[2021-04-20] MEDS: ENOXAPARIN 40 MG/0.4 ML SYRINGE SUBCUT SCH (16:21)
[2021-04-20] MEDS: METOPROLOL TARTRATE 50 MG TABLET PO SCH ×2 (16:21→20:20)
[2021-04-20] MEDS: PANTOPRAZOLE 40 MG TABLET PO SCH (16:21)
[2021-04-21] MEDS: niCARdipine INJ 25 MG in SODIUM CHLORIDE 0.9% 240 ML IV PRN ×2 (01:40→06:35)
[2021-04-21 06:43] LABS: Basophils % 0.2 % (0.0-0.8); Hematocrit 39.9 VOL% (42.0-52.0); Hemoglobin 13.1 GM/DL (14.0-18.0); Immature Granulocytes % 0.2 %; Immature Granulocytes Absolute 0.01 #; Lymphocytes # 0.5 10*3/uL (1.4-4.0); Lymphocytes % 9.9 % (21.2-54.2); Mean Corpuscular HGB Conc 32.8 GM/DL (32-36); Mean Corpuscular Volume 78.5 FL (87-102); Mean Platelet Volume 10.9 FL (9.6-12.0); Monocytes % 4.2 % (1.7-12.7); Neutrophils % 85.5 % (38.7-73.9); Platelet Count 239 T/CUMM (130-400); Red Blood Count 5.08 MC/CUMM (3.8-5.5); Red Cell Distribution Width 18.1 % (9.3-17.3); White Blood Count 5.1 T/CUMM (4-12)
[2021-04-21 07:27] LABS: Osmolality,Calculated 282.5 MOS/KG (273-304); Thyroid Stimulating Hormone 0.44 uIU/ml (0.358-3.74)
[2021-04-21] MEDS: PANTOPRAZOLE 40 MG TABLET PO SCH (08:57)
[2021-04-21] MEDS: IMIPRAMINE 25 MG TABLET PO SCH (08:57)
[2021-04-21] MEDS: ISOSORBIDE MONONITRATE 30 MG TABLET PO SCH (08:57)
[2021-04-21] MEDS: METOPROLOL TARTRATE 50 MG TABLET PO SCH ×2 (08:57→20:50)
[2021-04-21] MEDS: ASPIRIN CHEW 81 MG TABLET PO SCH (08:57)
[2021-04-21] MEDS: ENOXAPARIN 40 MG/0.4 ML SYRINGE SUBCUT SCH (15:34)
[2021-04-21] MEDS: ATORVASTATIN 10 MG TABLET PO SCH (20:50)
[2021-04-21] MEDS: FUROSEMIDE 100 MG/10 ML VIAL IV SCH (20:50)
[2021-04-22] MEDS: NIFEdipine 10 MG CAPSULE PO PRN ×2 (03:51→22:59)
[2021-04-22 06:59] LABS: Calcium 9.4 MG/DL (8.5-10.1); Osmolality,Calculated 283.5 MOS/KG (273-304); Potassium 3.7 MMOL/L (3.5-5.1)
[2021-04-22] MEDS: PANTOPRAZOLE 40 MG TABLET PO SCH (09:56)
[2021-04-22] MEDS: FUROSEMIDE 100 MG/10 ML VIAL IV SCH (09:56)
[2021-04-22] MEDS: METOPROLOL TARTRATE 50 MG TABLET PO SCH ×2 (09:56→20:36)
[2021-04-22] MEDS: ISOSORBIDE MONONITRATE 30 MG TABLET PO SCH (09:56)
[2021-04-22] MEDS: ASPIRIN CHEW 81 MG TABLET PO SCH (09:56)
[2021-04-22] MEDS: lisinopriL 10 MG TABLET PO SCH ×2 (09:56→09:58)
[2021-04-22] MEDS: IMIPRAMINE 25 MG TABLET PO SCH (10:31)
[2021-04-22] MEDS: ENOXAPARIN 40 MG/0.4 ML SYRINGE SUBCUT SCH (15:41)
[2021-04-22] MEDS: FUROSEMIDE 40 MG/4 ML VIAL IV SCH (17:09)
[2021-04-22] MEDS: LOSARTAN 50 MG TABLET PO SCH (20:36)
[2021-04-22] MEDS: predniSONE 10 MG TABLET PO SCH (20:36)
[2021-04-22] MEDS: ATORVASTATIN 10 MG TABLET PO SCH (20:36)
[2021-04-23 05:37] LABS: Basophils % 0.3 % (0.0-0.8); Eosinophils % 0.1 % (0.00-10.9); Hematocrit 42.4 VOL% (42.0-52.0); Hemoglobin 13.6 GM/DL (14.0-18.0); Immature Granulocytes % 0.5 %; Immature Granulocytes Absolute 0.04 #; Lymphocytes # 0.6 10*3/uL (1.4-4.0); Lymphocytes % 8.2 % (21.2-54.2); Mean Corpuscular HGB Conc 32.1 GM/DL (32-36); Mean Corpuscular Volume 77.7 FL (87-102); Monocytes % 6.4 % (1.7-12.7); Neutrophils % 84.5 % (38.7-73.9); Platelet Count 320 T/CUMM (130-400); Red Blood Count 5.46 MC/CUMM (3.8-5.5); White Blood Count 7.8 T/CUMM (4-12)
[2021-04-23 05:55] LABS: Osmolality,Calculated 281.8 MOS/KG (273-304); Potassium 3.5 MMOL/L (3.5-5.1)
[2021-04-23 06:06] LABS: Hypochromasia 2+; Microcytosis 1+
[2021-04-23 06:07] LABS: Ovalocytes Slight; Platelet Estimate Normal; Target Cells Slight
[2021-04-23] MEDS: PANTOPRAZOLE 40 MG TABLET PO SCH (08:51)
[2021-04-23] MEDS: LOSARTAN 50 MG TABLET PO SCH ×2 (08:51→21:09)
[2021-04-23] MEDS: METOPROLOL TARTRATE 50 MG TABLET PO SCH ×2 (08:51→21:09)
[2021-04-23] MEDS: ASPIRIN CHEW 81 MG TABLET PO SCH (08:51)
[2021-04-23] MEDS: predniSONE 10 MG TABLET PO SCH ×2 (08:51→21:09)
[2021-04-23] MEDS: AZITHROMYCIN 250 MG TABLET PO SCH (08:51)
[2021-04-23] MEDS: FUROSEMIDE 40 MG/4 ML VIAL IV SCH ×2 (08:51→16:52)
[2021-04-23] MEDS: IMIPRAMINE 25 MG TABLET PO SCH (08:52)
[2021-04-23] MEDS: NIFEdipine 10 MG CAPSULE PO PRN (11:22)
[2021-04-23] MEDS: ENOXAPARIN 40 MG/0.4 ML SYRINGE SUBCUT SCH (16:51)
[2021-04-23] MEDS: ATORVASTATIN 10 MG TABLET PO SCH (21:09)
[2021-04-24] MEDS: METOPROLOL TARTRATE 50 MG TABLET PO SCH (08:31)
[2021-04-24] MEDS: AZITHROMYCIN 250 MG TABLET PO SCH (08:31)
[2021-04-24] MEDS: predniSONE 10 MG TABLET PO SCH (08:31)
[2021-04-24] MEDS: PANTOPRAZOLE 40 MG TABLET PO SCH (08:31)
[2021-04-24] MEDS: LOSARTAN 50 MG TABLET PO SCH (08:31)
[2021-04-24] MEDS: ASPIRIN CHEW 81 MG TABLET PO SCH (08:31)
[2021-04-24] MEDS: IMIPRAMINE 25 MG TABLET PO SCH (08:32)
[2021-04-24] MEDS: FUROSEMIDE 40 MG/4 ML VIAL IV SCH (08:32)
[2021-04-24 12:09] VITALS: BP 159/92
[2021-04-24] MEDS ORDERED: hydrALAZINE 25 MG TABLET PO SCH (15:00)
== END 2021-04-24 14:40 | disposition home or self-care (01) | DRG 291 ==
LOC: N.ED 12:54 → N.EDINP 15:21 → SUATTDRO 15:21 → N.CC 17:37 → N.3E 04-21 20:28
PROVIDERS: ADMIT Internal Medicine; ATTEND Emergency Medicine